=== PATIENT | male | born 1935 | race American Indian/Alaskan Native ===

== ENCOUNTER 2022-01-16 09:08 | Inpatient (IN) | payer OTHER, MEDICARE ==
[2022-01-16] MEDS ORDERED: ACETAMINOPHEN 325 MG TAB PO ONE (09:37)
[2022-01-16] MEDS ORDERED: SODIUM CHLORIDE 0.9% 1000 ML 1,000 ML IV ONE ×2 (09:41→22:30)
--- NOTE | 2022-01-16 09:42 | Emergency Department Report ---
ED Shortness of Breath HPI - General Chief Complaint: Dyspnea/Respdistress Stated Complaint: SOB Time Seen by Provider: 01/16/22 09:33 Source: EMS Mode of arrival: Stretcher Limitations: Physical Limitation - History of Present Illness Initial Comments: Patient is an 86-year-old male sent from [facility] for evaluation of shortness of breath and fever beginning this morning. He denies any chest pain or leg swelling. No history of CHF, COPD or CKD. EMS reports temp of 101.4 on arrival. - Related Data Allergies Allergy/AdvReac Type Severity Reaction Status Date / Time No Known Allergies Allergy Verified 01/16/22 09:30 ED Review of Systems ROS: Stated complaint: SOB Other details as noted in HPI Comment: All other systems reviewed and negative Constitutional: denies: chills, fever Respiratory: shortness of breath Cardiovascular: denies: chest pain, palpitations Gastrointestinal: denies: abdominal pain, nausea, diarrhea Genitourinary: denies: urgency, dysuria Skin: denies: rash, lesions Neurological: denies: headache, weakness, paresthesias Psychiatric: denies: anxiety, depression Hematological/Lymphatic: denies: easy bleeding, easy bruising ED Past Medical Hx - Past Medical History Previous Medical History?: Yes Hx Hypertension: Yes Hx Congestive Heart Failure: Yes Hx Diabetes: Yes Hx Renal Disease: Yes Hx of Cancer: Yes (prostate) Additional medical history: endocarditis, dissection of abdominal aorta, prostate, anemia, vit d deficiency, hyperlipidemia ED Physical Exam - General Limitations: Physical Limitation General appearance: alert, in no apparent distress - Head Head exam: Present: atraumatic, normocephalic - Respiratory Respiratory exam: Present: normal lung sounds bilaterally. Absent: respiratory distress, wheezes - Cardiovascular Cardiovascular Exam: Present: tachycardia, irregular rhythm, normal heart sounds - GI/Abdominal GI/Abdominal exam: Present: soft. Absent: distended, tenderness - Extremities Exam Extremities exam: Absent: tenderness, pedal edema - Neurological Exam Neurological exam: Present: alert, oriented X3 - Psychiatric Psychiatric exam: Present: normal affect, normal mood - Skin Skin exam: Present: warm, dry, intact, normal color ED Course Vital Signs 01/16/22 01/16/22 09:20 10:30 Temperature 101.4 F H 101.4 F H Pulse Rate 112 H Respiratory 17 26 H Rate Blood Pressure 108/70 [Left] O2 Sat by Pulse 3 L 96 Oximetry ED Medical Decision Making - Lab Data Result diagrams: 01/16/22 09:44 01/16/22 09:44 - Medical Decision Making Patient given Tylenol for fever. Also given 1 L bolus. EKG shows A. fib without RVR. Chemistry reveals creatinine of 2.3. Troponin 0.51. Lactic acid 4.1. BNP 76112. Chest x-ray shows minimal edema. Urine is black in color. Will cover empirically with Rocephin. Admit to hospitalist. Critical care attestation.: If time is entered above; I have spent that time in minutes in the direct care of this critically ill patient, excluding procedure time. ED Disposition Clinical Impression: Atrial fibrillation, Elevated troponin, SIRS (systemic inflammatory response syndrome), NSTEMI (non-ST elevated myocardial infarction), Dyspnea, Elevated brain natriuretic peptide (BNP) level Disposition: ADMITTED INPATIENT Is pt being admited?: Yes Condition: Stable
--- NOTE | 2022-01-16 10:49 | XRay Report ---
CHEST 1 VIEW INDICATION: Dyspnea. COMPARISON: None FINDINGS: SUPPORT DEVICES: None. HEART: Sternotomy change with mild cardiomegaly. LUNGS/PLEURA: Minimal edema with no consolidation or effusion. ADDITIONAL FINDINGS: None. IMPRESSION: 1. Lung findings as above. Signer Name: Don Valente MD Signed: 01/16/2022 10:44 AM Workstation Name: [id number]
[2022-01-16 11:06] LABS: Hematocrit 35.7 % (35.5-45.6); Hemoglobin 11.8 gm/dl (11.8-15.2); Mean Corpuscular HGB Conc 33 % (32-34); Mean Corpuscular Volume 92 fl (84-94); Platelet Count 186 K/mm3 (140-440); Red Blood Count 3.86 M/mm3 (3.65-5.03)
[2022-01-16 11:14] LABS: Red Cell Distribution Width 20.4 % (13.2-15.2)
[2022-01-16 11:19] LABS: Albumin 3.7 g/dL (3.9-5); Calcium 8.7 mg/dL (8.4-10.2)
[2022-01-16] MEDS ORDERED: cefTRIAXone/NS 1 GM/50 ML 1 GM/50 ML BAG IV ONE (12:49)
[2022-01-16] MEDS ORDERED: HEPARIN 10,000 UNITS/10 ML VIAL IV PRN ×2 (12:51→14:00)
[2022-01-16 13:27] LABS: Anisocytosis 1+; Band Neutrophils # (Manual) 0.1 K/mm3; Eosinophils % (Manual) 0 % (0.0-4.3); Large Platelets Rare; Platelet Estimate Consistent w Auto; Schistocytes Few; Tear Drop Cells 1+; Total Cells Counted 100
[2022-01-16] MEDS ORDERED: HEPARIN/ 0.45% NACL DRIP 25,000 UNIT/500 ML BAG IV SCH (13:30)
[2022-01-16 13:40] LABS: Hematocrit 24.8 % (35.5-45.6); Hemoglobin 8.2 gm/dl (11.8-15.2)
[2022-01-16 13:52] LABS: RBC,Urine < 1.0 /HPF (0.0-6.0)
[2022-01-16 14:05] LABS: INR 1.15 (0.87-1.13)
[2022-01-16 14:06] LABS: Partial Thromboplastin Time 45.1 Sec. (24.2-36.6)
[2022-01-16 14:23] LABS: Bilirubin,Urine TNR (Negative); Blood,Urine TNR (Negative); Color,Urine Brown (Yellow); Ictotest,Urine TNR (Negative); PH,Urine TNR (5.0-7.0); Protein,Urine TNR mg/dL (Negative); Urobilinogen,Urine TNR mg/dL (<2.0); WBC,Urine < 1.0 /HPF (0.0-6.0)
[2022-01-16] MEDS: HEPARIN 10,000 UNITS/10 ML VIAL IV ONE ×2 (17:21→17:27)
[2022-01-16] MEDS ORDERED: ONDANSETRON 4 MG/2 ML INJ IV PRN (17:55)
[2022-01-16] MEDS ORDERED: ACETAMINOPHEN 325 MG TAB PO PRN (17:55)
[2022-01-16] MEDS ORDERED: oxyCODONE /ACETAMINOPHEN 5-325MG TAB PO PRN (17:55)
--- NOTE | 2022-01-16 17:55 | History and Physical Report ---
History of Present Illness Date of examination: 01/16/22 Date of admission: 01/16/2022 Chief complaint: Fever and shortness of breath History of present illness: 86-year-old male sent from [facility] for fever and shortness of breath since morning. Patient's temperature was 101.4 on arrival. Patient has a history of diabetes chronic kidney disease congestive heart failure and hypertension. 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 Patient has multiple medical problems. And is a resident of [facility]. - Past Medical History Previous Medical History?: Yes Hx Hypertension: Yes Hx Congestive Heart Failure: Yes Hx Diabetes: Yes Hx Renal Disease: Yes Hx of Cancer: Yes (prostate) Additional medical history: endocarditis, dissection of abdominal aorta, prostate, anemia, vit d deficiency, hyperlipidemia Review of Systems ROS: Stated complaint: SOB Other details as noted in HPI Comment: All other systems reviewed and negative Constitutional: denies: chills, fever Respiratory: shortness of breath Cardiovascular: denies: chest pain, palpitations Gastrointestinal: denies: abdominal pain, nausea, diarrhea Genitourinary: denies: urgency, dysuria Skin: denies: rash, lesions Neurological: denies: headache, weakness, paresthesias Psychiatric: denies: anxiety, depression Hematological/Lymphatic: denies: easy bleeding, easy bruising Past History Past Surgical History: Other (Not available) Social history: full code, other (Lives in [facility]) Family history: hypertension Medications and Allergies Allergies Allergy/AdvReac Type Severity Reaction Status Date / Time No Known Allergies Allergy Verified 01/16/22 09:30 Active Meds: Active Medications Heparin Sodium (Porcine) (Heparin 10,000 Units/10 Ml Vial) 5,000 unit IV Q6H PRN PRN Reason: Anti-Xa Assay < 0.1 units/ml Heparin Sodium/Sodium Chloride (Heparin/ 0.45% Nacl-25,000 Unit/500 Ml) 25,000 unit in 500 mls @ 20 mls/hr IV TITRATE TATYANA; Protocol Last Admin: 01/16/22 17:19 Dose: 1,000 units/hr, 20 mls/hr Exam - Constitutional Vitals: Temp Pulse Resp BP Pulse Ox 101.4 F H 93 H 22 90/54 97 01/16/22 10:30 01/16/22 17:01 01/16/22 17:01 01/16/22 17:01 01/16/22 12:01 General appearance: Present: no acute distress, mild distress, well-nourished - EENT Eyes: Present: PERRL ENT: hearing intact, clear oral mucosa - Neck Neck: Present: supple, normal ROM - Respiratory Respiratory effort: normal Respiratory: bilateral: CTA - Cardiovascular Heart rate: 100 Rhythm: regular Heart Sounds: Present: S1 & S2. Absent: rub, click - Extremities Extremities: pulses symmetrical, No edema Peripheral Pulses: within normal limits - Abdominal General gastrointestinal: Present: soft, non-tender, non-distended, normal bowel sounds Male genitourinary: Present: normal - Integumentary Integumentary: Present: clear, warm, dry - Musculoskeletal Musculoskeletal: generalized weakness - Psychiatric Psychiatric: other (Lethargic) - Neurologic Neurologic: other (Lethargic and decreased responsiveness) - Allied Health Allied health notes reviewed: nursing, case management HEART Score - HEART Score Troponin: Troponin T 0.512 ng/mL (0.00-0.029) H* 01/16/22 09:44 Results - Labs CBC & Chem 7: 01/17/22 03:48 01/17/22 03:48 Labs: Laboratory Last Values WBC 3.9 K/mm3 (4.5-11.0) L 01/16/22 09:44 RBC 3.86 M/mm3 (3.65-5.03) 01/16/22 09:44 Hgb 8.2 gm/dl (11.8-15.2) L D 01/16/22 12:53 Hct 24.8 % (35.5-45.6) L D 01/16/22 12:53 MCV 92 fl (84-94) 01/16/22 09:44 MCH 31 pg (28-32) 01/16/22 09:44 MCHC 33 % (32-34) 01/16/22 09:44 RDW 20.4 % (13.2-15.2) H 01/16/22 09:44 Plt Count 202 K/mm3 (140-440) 01/16/22 12:53 [place] % (Auto) Sheriff Officer 01/16/22 09:44 Add Manual Diff Complete 01/16/22 09:44 Total Counted 100 01/16/22 09:44 Seg Neuts % (Manual) 67.0 % (40.0-70.0) 01/16/22 09:44 Band Neutrophils % 3.0 % 01/16/22 09:44 Lymphocytes % (Manual) 11.0 % (13.4-35.0) L 01/16/22 09:44 Reactive Lymphs % (Man) 0 % 01/16/22 09:44 Monocytes % (Manual) 18.0 % (0.0-7.3) H 01/16/22 09:44 Eosinophils % (Manual) 0 % (0.0-4.3) 01/16/22 09:44 Basophils % (Manual) 1.0 % (0.0-1.8) 01/16/22 09:44 Metamyelocytes % 0 % 01/16/22 09:44 Myelocytes % 0 % 01/16/22 09:44 Promyelocytes % 0 % 01/16/22 09:44 Blast Cells % 0 % 01/16/22 09:44 Nucleated RBC % Not Reportable 01/16/22 09:44 Seg Neutrophils # Man 2.6 K/mm3 (1.8-7.7) 01/16/22 09:44 Band Neutrophils # 0.1 K/mm3 01/16/22 09:44 Lymphocytes # (Manual) 0.4 K/mm3 (1.2-5.4) L 01/16/22 09:44 Abs React Lymphs (Man) 0.0 K/mm3 01/16/22 09:44 Monocytes # (Manual) 0.7 K/mm3 (0.0-0.8) 01/16/22 09:44 Eosinophils # (Manual) 0.0 K/mm3 (0.0-0.4) 01/16/22 09:44 Basophils # (Manual) 0.0 K/mm3 (0.0-0.1) 01/16/22 09:44 Metamyelocytes # 0.0 K/mm3 01/16/22 09:44 Myelocytes # 0.0 K/mm3 01/16/22 09:44 Promyelocytes # 0.0 K/mm3 01/16/22 09:44 Blast Cells # 0.0 K/mm3 01/16/22 09:44 WBC Morphology Not Reportable 01/16/22 09:44 Hypersegmented Neuts Not Reportable 01/16/22 09:44 Hyposegmented Neuts Not Reportable 01/16/22 09:44 Hypogranular Neuts Not Reportable 01/16/22 09:44 Smudge Cells Not Reportable 01/16/22 09:44 Toxic Granulation Not Reportable 01/16/22 09:44 Toxic Vacuolation Not Reportable 01/16/22 09:44 Dohle Bodies Not Reportable 01/16/22 09:44 Pelger-Huet Anomaly Not Reportable 01/16/22 09:44 Brenna Rods Not Reportable 01/16/22 09:44 Platelet Estimate Consistent w auto 01/16/22 09:44 Clumped Platelets Not Reportable 01/16/22 09:44 Plt Clumps, EDTA Not Reportable 01/16/22 09:44 Large Platelets Rare 01/16/22 09:44 Giant Platelets Not Reportable 01/16/22 09:44 Platelet Satelliting Not Reportable 01/16/22 09:44 Plt Morphology Comment Not Reportable 01/16/22 09:44 RBC Morphology Not Reportable 01/16/22 09:44 Dimorphic RBCs Not Reportable 01/16/22 09:44 Polychromasia Not Reportable 01/16/22 09:44 Hypochromasia Not Reportable 01/16/22 09:44 Poikilocytosis Not Reportable 01/16/22 09:44 Anisocytosis 1+ 01/16/22 09:44 Microcytosis Not Reportable 01/16/22 09:44 Macrocytosis Not Reportable 01/16/22 09:44 Spherocytes Not Reportable 01/16/22 09:44 Pappenheimer Bodies Not Reportable 01/16/22 09:44 Sickle Cells Not Reportable 01/16/22 09:44 Target Cells Not Reportable 01/16/22 09:44 Tear Drop Cells 1+ 01/16/22 09:44 Ovalocytes Not Reportable 01/16/22 09:44 Helmet Cells Not Reportable 01/16/22 09:44 [place] Bodies Not Reportable 01/16/22 09:44 [place] Rings Not Reportable 01/16/22 09:44 [place] Cells Not Reportable 01/16/22 09:44 Bite Cells Not Reportable 01/16/22 09:44 Crenated Cell Not Reportable 01/16/22 09:44 Elliptocytes Not Reportable 01/16/22 09:44 Acanthocytes (Spur) Not Reportable 01/16/22 09:44 Rouleaux Not Reportable 01/16/22 09:44 Hemoglobin C Crystals Not Reportable 01/16/22 09:44 Schistocytes Few 01/16/22 09:44 Malaria parasites Not Reportable 01/16/22 09:44 Anthony Bodies Not Reportable 01/16/22 09:44 Hem Pathologist Commnt No 01/16/22 09:44 PT 16.0 Sec. (12.2-14.9) H 01/16/22 12:53 INR 1.15 (0.87-1.13) H 01/16/22 12:53 APTT 45.1 Sec. (24.2-36.6) H 01/16/22 12:53 Sodium 143 mmol/L (137-145) 01/16/22 09:44 Potassium 4.5 mmol/L (3.6-5.0) 01/16/22 09:44 Chloride 104.7 mmol/L (98-107) 01/16/22 09:44 Carbon Dioxide 21 mmol/L (22-30) L 01/16/22 09:44 Anion Gap 22 mmol/L 01/16/22 09:44 BUN 54 mg/dL (9-20) H 01/16/22 09:44 Creatinine 2.3 mg/dL (0.8-1.3) H 01/16/22 09:44 Estimated GFR 33 ml/min 01/16/22 09:44 BUN/Creatinine Ratio 23 % 01/16/22 09:44 Glucose 202 mg/dL (75-100) H 01/16/22 09:44 Lactic Acid 3.40 mmol/L (0.7-2.0) H* 01/16/22 12:53 Calcium 8.7 mg/dL (8.4-10.2) 01/16/22 09:44 Total Bilirubin 0.90 mg/dL (0.1-1.2) 01/16/22 09:44 AST 28 units/L (5-40) 01/16/22 09:44 ALT 15 units/L (7-56) 01/16/22 09:44 Alkaline Phosphatase 99 units/L (35-129) 01/16/22 09:44 Troponin T 0.512 ng/mL (0.00-0.029) H* 01/16/22 09:44 NT-Pro-B Natriuret Pep 61469 pg/mL (0-900) H 01/16/22 09:44 Total Protein 7.2 g/dL (6.3-8.2) 01/16/22 09:44 Albumin 3.7 g/dL (3.9-5) L 01/16/22 09:44 Albumin/Globulin Ratio 1.1 % 01/16/22 09:44 Urine Color Brown (Yellow) 01/16/22 Unknown Urine Turbidity Turbid (Clear) 01/16/22 Unknown Urine pH TNR 01/16/22 Unknown Ur Specific [place] TNR 01/16/22 Unknown Urine Protein TNR 01/16/22 Unknown Urine Glucose (UA) TNR 01/16/22 Unknown Urine Ketones TNR 01/16/22 Unknown Urine Blood TNR 01/16/22 Unknown Urine Nitrite TNR 01/16/22 Unknown Ur Reducing Substances TNR 01/16/22 Unknown Urine Bilirubin TNR 01/16/22 Unknown Urine Ictotest TNR 01/16/22 Unknown Urine Urobilinogen TNR 01/16/22 Unknown Ur Leukocyte Esterase TNR 01/16/22 Unknown Urine WBC (Auto) < 1.0 /HPF (0.0-6.0) 01/16/22 Unknown Urine RBC (Auto) < 1.0 /HPF (0.0-6.0) 01/16/22 Unknown Short CBC 01/16/22 01/16/22 01/17/22 Range/Units 09:44 12:53 03:48 WBC 3.9 L 9.5 (4.5-11.0) K/mm3 Hgb 11.8 8.2 L D 6.4 L (11.8-15.2) gm/dl Hct 35.7 24.8 L D 21.9 L (35.5-45.6) % Plt Count 186 202 178 (140-440) K/mm3 BMP 01/16/22 01/17/22 09:44 03:48 Sodium 143 149 H Potassium 4.5 5.6 H D Chloride 104.7 103.7 Carbon Dioxide 21 L 6 L* D BUN 54 H 67 H Creatinine 2.3 H 3.2 H Glucose 202 H 97 Calcium 8.7 10.5 H D Cardiac Enzymes 01/16/22 01/17/22 Range/Units 09:44 03:48 Troponin T 0.512 H* 2.030 H* D (0.00-0.029) ng/mL Liver Function 01/16/22 01/17/22 Range/Units 09:44 03:48 Total Bilirubin 0.90 0.90 (0.1-1.2) mg/dL AST 28 604 H (5-40) units/L ALT 15 378 H (7-56) units/L Alkaline Phosphatase 99 167 H (35-129) units/L Albumin 3.7 L 3.0 L (3.9-5) g/dL Urine 01/16/22 Range/Units Unknown Urine Color Brown (Yellow) Urine pH TNR Ur Specific [place] TNR Urine Protein TNR Urine Glucose (UA) TNR Microbiology: Microbiology 01/16/22 09:44 Peripheral/Venous Blood Culture - Preliminary Culture in Progress 01/16/22 09:44 Peripheral/Venous Blood Culture - Preliminary Culture in Progress - Imaging and Cardiology EKG: report reviewed (Sinus tachycardia no acute ST-T wave changes) Imaging and Cardiology: Chest x-ray Minimal edema with no consolidation or effusion Assessment and Plan Advance Directives: Yes (Full code) VTE prophylaxis?: Chemical Plan of care discussed with patient/family: Yes - Patient Problems (1) Sepsis Current Visit: Yes Status: Acute Qualifiers: Severe sepsis shock status: without septic shock Plan to address problem: Possibly from pneumonia Patient started on broad-spectrum antibiotics Lactic acid high (2) Pneumonia Current Visit: Yes Status: Acute Plan to address problem: Patient initiated on IV antibiotics Poor prognosis given his age (3) Elevated troponin Current Visit: Yes Status: Acute Plan to address problem: Secondary to elevated creatinine Possible NSTEMI 2 (4) NEHEMIAH (acute kidney injury) Current Visit: Yes Status: Acute Plan to address problem: IV fluids for now Nephrology consult requested (5) CHF (congestive heart failure) Current Visit: Yes Status: Chronic Qualifiers: Heart failure chronicity: unspecified Plan to address problem: BNP is 32,293 Echocardiogram for ejection fraction and wall motion abnormalities and valve function (6) DVT prophylaxis Current Visit: Yes Status: Acute Plan to address problem: On heparin and GI prophylaxis (7) Advance care planning Current Visit: Yes Status: Acute Plan to address problem: Could not be done because patient is lethargic and decreased responsiveness
[2022-01-16] MEDS ORDERED: SODIUM CHLORIDE 0.9% 1000 ML 1,000 ML IV SCH (18:00)
[2022-01-16] MEDS ORDERED: ALBUTEROL 2.5 MG/3 ML NEBU IH ONE ×2 (23:06→23:20)
[2022-01-16] MEDS ORDERED: IPRATROPIUM 0.02% NEBU 2.5 ML IH ONE ×2 (23:06→23:20)
[2022-01-17 00:15] LABS: ABG Base Excess -19.2 mmol/L (-2.0-3.0); ABG HCO3 7.4 mmol/L (20.0-26.0); ABG Methemoglobin 0.4 % (0.0-1.5); ABG Oxygen Saturation 98.2 % (95.0-99.0); ABG PCO2 20.3 mm Hg; ABG PO2 130.3 mm Hg (80.0-90.0)
[2022-01-17 00:29] LABS: ABG PH 7.181 pH Units (7.350-7.450)
--- NOTE | 2022-01-17 00:36 | XRay Report ---
CHEST 1 VIEW 01/16/2022 11:26 PM INDICATION / CLINICAL INFORMATION: sob. COMPARISON: One view of the chest from 01/16/2022. FINDINGS: SUPPORT DEVICES: None. HEART / MEDIASTINUM: Stable. LUNGS / PLEURA: Generalized bilateral interstitial opacities have mildly worsened. No dense area of c onsolidation. No significant pleural effusion. No pneumothorax. ADDITIONAL FINDINGS: No significant additional findings. IMPRESSION: Mild interval worsening of suspected pulmonary edema without other significant interval changes. Signer Name: Viet Martinez MD Signed: 01/17/2022 12:32 AM Workstation Name: [id number]
[2022-01-17] MEDS ORDERED: MORPHINE 2 MG/1 ML INJ IV ONE (00:49)
[2022-01-17] MEDS ORDERED: SODIUM BICARBONATE 50 MEQ in SODIUM CHLORIDE 0.9% 1000 ML 1,000 ML IV SCH (01:00)
[2022-01-17] MEDS ORDERED: NORepinephrine/NS 8 MG-250 ML 8 MG/250 ML INFUS..BTL IV ONE (03:32)
[2022-01-17] MEDS ORDERED: NORepinephrine/NS 8 MG-250 ML 8 MG/250 ML INFUS..BTL IV SCH (03:33)
[2022-01-17] MEDS ORDERED: SODIUM CHLORIDE 0.9% 1000 ML 1,000 ML IV ONE (03:33)
[2022-01-17] MEDS ORDERED: PANTOPRAZOLE 80 MG in SODIUM CHLORIDE 0.9% 100 ML IV SCH (03:33)
[2022-01-17] MEDS ORDERED: VASOPRESSIN 20 UNIT in SODIUM CHLORIDE 0.9% 100 ML IV SCH (03:52)
[2022-01-17] MEDS ORDERED: EPINEPHrine 1 MG/1 ML 8 MG in SODIUM CHLORIDE 0.9% 250ML 242 ML IV SCH (04:00)
[2022-01-17 04:09] VITALS: BP 115/56
[2022-01-17 04:09] LABS: Hematocrit 21.9 % (35.5-45.6); Hemoglobin 6.4 gm/dl (11.8-15.2); Mean Corpuscular HGB Conc 29 % (32-34); Mean Corpuscular Volume 105 fl (84-94); Platelet Count 178 K/mm3 (140-440); Red Blood Count 2.09 M/mm3 (3.65-5.03)
--- NOTE | 2022-01-17 04:11 | Event Note ---
Date: 01/17/22 CODE AVELINA is called. Patient is coded multiple times. Patient was intubated by the ER physician. patient is given more than 10 epinephrine, a couple of bicarb, calcium gluconate and 1 atropine is given. CPR was given as per ACLS protocol. Patient regained ROSC. Patient is transferred to the ICU put on epinephrine drip, Levophed drip, normal saline and vasopressin. Prognosis is poor. Daughter at the bedside
[2022-01-17 04:16] LABS: Red Cell Distribution Width 21.8 % (13.2-15.2)
[2022-01-17 04:23] LABS: INR 1.89 (0.87-1.13)
[2022-01-17 04:42] LABS: Partial Thromboplastin Time > 240.0 Sec. (24.2-36.6)
--- NOTE | 2022-01-17 04:55 | Death Note ---
Note Date of : 01/17/22 Time of : 04:39 Time Pronounced: 04:39 - Preliminary Cause of (problem) (1) Cardiac arrest Preliminary cause of Called by the nurse that the patient is not breathing no pulse no BP. CODE BLUE was called. Patient was coded fifth time. CPR was given as per ACLS protocol. 2 epinephrine and 1 bicarb is given. Patient daughter made the patient DNR and stop the code. Prognosis is poor. Patient failed to regain ROSC. Daughter at the bedside. Patient of cardiopulmonary arrest, respiratory failure, non- ST elevation [place], suspected COVID-19 infection. (2) Person under investigation for COVID-19 Preliminary cause of (3) Atrial fibrillation Preliminary cause of (4) Dyspnea Preliminary cause of (5) Elevated troponin Preliminary cause of (6) NSTEMI (non-ST elevated myocardial infarction) Preliminary cause of (7) SIRS (systemic inflammatory response syndrome) Preliminary cause of
[2022-01-17 05:02] LABS: Calcium 10.5 mg/dL (8.4-10.2)
[2022-01-17 05:27] LABS: Anisocytosis 1+; Band Neutrophils # (Manual) 0.1 K/mm3; Basophils % (Manual) 0 % (0.0-1.8); Eosinophils % (Manual) 0 % (0.0-4.3); Myelocytes # (Manual) 0.1 K/mm3; Platelet Estimate Consistent w Auto; Poikilocytosis 1+; Total Cells Counted 100
[2022-01-17 06:13] LABS: Chol/HDL Ratio 3.57 %
--- NOTE | 2022-01-17 07:49 | Death Summary ---
Summary - Providers Consults: 01/16/22 18:00 Consult to Physician [CONS] Routine Comment: Consulting Provider: YAMEL CHU Physician Instructions: Reason For Exam: NEHEMIAH 01/17/22 04:05 Consult to Physician [CONS] Routine Comment: Consulting Provider: WILBERT ARIAS Physician Instructions: Reason For Exam: cardiac arrest 01/17/22 04:06 Consult to Physician [CONS] Routine Comment: Consulting Provider: LINDA HILLIARD Physician Instructions: Reason For Exam: gib Consult to Physician [CONS] Routine Comment: Consulting Provider: DANIELA RAMON Physician Instructions: Reason For Exam: cardiac arrest Attending: CHESTER ANTONY MD - summary Date of admission: 01/16/22 17:55 Date of : 01/17/22 Reason for admission: Sepsis Significant findings: High lactic acid and elevated BNP Procedures/treatments rendered: IV antibiotics and diuresis Disposition: Cardiorespiratory failure secondary to sepsis , septic shock and cardiac arrest - Final diagnosis (1) Sepsis Qualifiers: Sepsis type: sepsis due to unspecified organism Severe sepsis acute organ dysfunction type: acute respiratory failure Acute respiratory failure type: with hypoxia Severe sepsis shock status: with septic shock Note: Final diagnosis: (2) Pneumonia Qualifiers: Pneumonia type: due to unspecified organism Note: Final diagnosis: (3) Elevated troponin Note: Final diagnosis: (4) NEHEMIAH (acute kidney injury) Note: Final diagnosis: (5) CHF (congestive heart failure) Qualifiers: Heart failure chronicity: unspecified Note: Final diagnosis: (6) DVT prophylaxis Note: Final diagnosis: (7) Advance care planning Note: Final diagnosis:
[2022-01-17] MEDS ORDERED: cefTRIAXone/NS 2 GM/100 ML 2 GM/100 ML BAG IV SCH (10:00)
--- NOTE | 2022-01-17 11:12 | Electrocardiograph Report ---
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
--- NOTE | 2022-01-17 21:24 | Event Note ---
Date: 01/17/22 (around 04:00 AM) Around 04:00 AM -- Terence florez was called and I was called upon to come and intubate this patient with cardiopulmonary arrest. Please see the procedure noted below. Procedure: ET intubation Time out:Yes with name of patient confirmed Sedation:Etomidate 20 mg IV x 1 Paralytic:Rocuronium 60 mg IV x 1 ET Tube size: 7.5 Assisted Device:Tree size 4 curved Tube location depth:22 cm at the lip Tube placement confirmation:visualized tube passing through cords, no breath sounds over epigastrum, confirmed by capnometry with equal breath sound auscultated bilaterally Patient Tolerated Procedure:Well Intubation Complication:None Additional Comments:none
== END 2022-01-17 07:59 | DRG 871 ==
LOC: ED 09:08 → 3A 17:55 → CC1 01-17 03:36
PROVIDERS: ADMIT Internal Medicine; ATTEND Internal Medicine
PROC: 5A09357 Assistance with Respiratory Ventilation, Less than 24 Consecutive Hours, Continuous Positive Airway Pressure (ICD-10-PCS; 2022-01-16)
PROC: 5A12012 Performance of Cardiac Output, Single, Manual (ICD-10-PCS; principal; 2022-01-17)
PROC: 5A1935Z Respiratory Ventilation, Less than 24 Consecutive Hours (ICD-10-PCS; 2022-01-17)
PROC: 0BH17EZ Insertion of Endotracheal Airway into Trachea, Via Natural or Artificial Opening (ICD-10-PCS; 2022-01-17)
DX: A41.9 Sepsis, unspecified organism (principal); I21.4 Non-ST elevation (NSTEMI) myocardial infarction; J18.9 Pneumonia, unspecified organism; R65.21 Severe sepsis with septic shock; N17.9 Acute kidney failure, unspecified; E11.9 Type 2 diabetes mellitus without complications; I11.0 Hypertensive heart disease with heart failure; I50.9 Heart failure, unspecified; E78.5 Hyperlipidemia, unspecified; I48.91 Unspecified atrial fibrillation; I46.9 Cardiac arrest, cause unspecified; Z66 Do not resuscitate; Z85.46 Personal history of malignant neoplasm of prostate; Z20.822 Contact with and (suspected) exposure to COVID-19
CPT/HCPCS: 36415; 71045; 80053; 80061; 81001; 82140; 82803; 82962; 83880; 84484; 85007; 85014; 85018; 85025; 85049; 85379; 85520; 85610; 85730; 87040; 93005; 94002; 94003; 94644; G0378; J2354; J3490; J0696; J1644; J2270; J2704; J7030